=== PATIENT | male | born 1945 | race Caucasian/White ===

== ENCOUNTER 2017-10-31 09:34 | Emergency (ER) | payer MEDICARE, BC ==
[2017-10-31 09:48] VITALS: BP 129/78
--- NOTE | 2017-10-31 10:49 | UC ---
Skin Complaint HPI - HPI Summary HPI Summary: Pt is a 72 y/o M w/ c/o an erythematous and indurated right lower leg. Onset of Sx was 3-4 days ago. Pt reports brushing affected area against a branch around time frame of Sx onset. No tick was found on/removed from affected area. He reports some tenderness but denies fever and chills. Pt denies pain on triage. Pt states he treated area with hydrogen peroxide and betadine. Two days ago, he began to apply neosporine and dave wrap. - History of Current Complaint Chief Complaint: UCSkin Time Seen by Provider: 10/31/17 10:21 Stated Complaint: SKIN COMPLAINT Hx Obtained From: Patient Onset/Duration: Lasting Days - 3-4 days ago Current Severity: None - denies pain Pain Intensity: 0 Pain Scale Used: 0-10 Numeric - 0/10 Location: Other - right lower leg Character: Redness Aggravating Factor(s): Nothing Alleviating Factor(s): Nothing Associated Signs & Symptoms: Positive: Tenderness. Negative: Fever, Chills Related History: Possible Reaction to: Environmental Exposure - Pt reports brushing affected area against a branch - Allergy/Home Medications Allergies/Adverse Reactions: Allergies Allergy/AdvReac Type Severity Reaction Status Date / Time oxycodone Allergy Agitation Verified 10/31/17 09:48 Home Medications: Home Medications Amlodipine Besylate [Norvasc 5 mg tab] 2.5 mg PO BID 10/31/17 [History Confirmed 10/31/17] Review of Systems Constitutional: Other - NEGATIVE: fever, chills Musculoskeletal: Other: - POSITIVE: erythematous, indurated, tender area on right lower leg. All Other Systems Reviewed And Are Negative: Yes PMH/Surg Hx/FS Hx/Imm Hx Endocrine History: Other Other Endocrine History: NEGATIVE: diabetes Respiratory History: Other Other Respiratory History: NEGATIVE: COPD Other History Of: Negative For: Anticoagulant Therapy - takes ASA 325MG DAILY - Surgical History Surgical History: Yes Surgery Procedure, Year, and Place: quadruple bypass and stent; inguinal hernia ; right carotid "cleansing" - Family History Known Family History: Positive: Cardiac Disease, Respiratory Disease - ASTHMA - Social History Alcohol Use: Daily Alcohol Amount: wine Substance Use Type: None Smoking Status (MU): Never Smoked Tobacco Have You Smoked in the Last Year: No - Immunization History Most Recent Tetanus Shot: Not sure Hx Tetanus, Diphtheria Vaccination: Yes Vaccination Up to Date: No Physical Exam - Summary Physical Exam Summary: General: well-appearing, no pain distress Skin: warm, color reflects adequate perfusion, dry; right lateral calf, 3 cm erythematous flat area with scab in central part, slightly indurated, no drainable fluid collection, no streaking. Head: normal Eyes: EOMI, BRIAN ENT: normal Neck: supple, nontender Respiratory: CTA, breath sounds present Cardiovascular: RRR Abdomen: soft, nontender Bowel: present Musculoskeletal: normal, strength/ROM intact Neurological: sensory/motor intact, A&O x3 Psychological: affect/mood appropriate Triage Information Reviewed: Yes Vital Signs: Initial Vital Signs Temp 98.2 F 10/31/17 09:43 Pulse 71 10/31/17 09:43 Resp 18 10/31/17 09:43 BP 129/78 10/31/17 09:43 Pulse Ox 99 10/31/17 09:43 Vital Signs Reviewed: Yes Course/Dx - Course Course Of Treatment: F/U PMD; RECHECK SOONER IF WORSE. - Diagnoses Provider Diagnoses: CELLULITIS RIGHT LEG Discharge - Sign-Out/Discharge Documenting (check all that apply): Patient Departure - Discharge Plan Condition: Stable Disposition: HOME Prescriptions: Cephalexin CAP* [Keflex CAP*] 500 mg PO TID #30 cap Mupirocin 1 applic TOPICAL TID #22 gm Patient Education Materials: Cellulitis (ED) Referrals: Nona Agudelo MD [Primary Care Provider] - Additional Instructions: FOLLOW UP WITH YOUR DOCTOR. GET RECHECKED FOR ANY WORSENING OF YOUR CONDITION; FEVER, SPREAD OF INFECTION, YOU FEEL ILL OR QUESTIONS OR CONCERNS. - Billing Disposition and Condition Condition: STABLE Disposition: Home
== END 2017-10-31 10:35 | disposition home or self-care (01) ==
LOC: UCEAST 09:34
DX: L03.115 Cellulitis of right lower limb (principal); Z79.82 Long term (current) use of aspirin; Z95.1 Presence of aortocoronary bypass graft; Z95.5 Presence of coronary angioplasty implant and graft; Z88.5 Allergy status to narcotic agent; Z82.49 Family history of ischemic heart disease and other diseases of the circulatory system; Z82.5 Family history of asthma and other chronic lower respiratory diseases
CPT/HCPCS: 99212; G0463

== ENCOUNTER 2018-02-16 06:04 | Emergency (ER) | payer MEDICARE, BC ==
[2018-02-16 06:38] LABS: ABS Basophils 0 10^3/ul (0-0.2); ABS Eosinophils 0.2 10^3/ul (0-0.6); ABS Lymphocytes 1.2 10^3/ul (1.0-4.8); ABS Monocytes 0.5 10^3/ul (0-0.8); ABS Neutrophils 3.5 10^3/ul (1.5-7.7); ABS Nucleated RBC 0 10^3/ul; Eosinophil % 3.1 % (0-6); Hematocrit 42 % (42-52); Hemoglobin 14.7 g/dl (14.0-18.0); Lymphocyte % 21.4 % (25-47); Mean Corpuscular HGB Conc 35 g/dl (31-36); Mean Corpuscular Hemoglobin 32 pg (27-31); Mean Corpuscular Volume 91 fL (80-94); Mean Platelet Volume 7.2 um3 (7.4-10.4); Nucleated Red Blood Cells % 0.2; Platelet Count 204 10^3/ul (150-450); Red Blood Count 4.55 10^6/ul (4.00-5.40); Red Cell Distribution Width 13 % (10.5-15); White Blood Count 5.4 10^3/ul (3.5-10.8)
[2018-02-16 06:57] LABS: EGFR Non-African American 96.4 (>60)
--- NOTE | 2018-02-16 07:02 | ED ---
Complex/Multi-Sys Presentation - HPI Summary HPI Summary: Patient is a 72-year-old male who presents emergency department for vague complaints of chills, nausea, chest breath and increased anxiety. Patient states over the last few days he has been having episodes he wakes up feeling short of breath, anxious and nauseous. He experiences episode just prior to arrival and presented to the ER for evaluation. Patient states he did take a nitroglycerin and Ativan symptoms resolved. However patient denies having any chest pain. 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 Also past medical history of acid reflux, high blood pressure, high cholesterol. Patient denies recent illness, fevers, abdominal pain, vomiting, diarrhea, urinary symptoms. Symptoms are moderate in severity. Patient currently has no complaints. No current modifying factors. - History Of Current Complaint Chief Complaint: EDGeneral Time Seen by Provider: 02/16/18 06:20 Hx Obtained From: Patient - Allergies/Home Medications Allergies/Adverse Reactions: Allergies Allergy/AdvReac Type Severity Reaction Status Date / Time oxycodone Allergy Agitation Verified 02/16/18 06:12 PMH/Surg Hx/FS Hx/Imm Hx Previously Healthy: Yes Endocrine/Hematology History: Reports: Hx Thyroid Disease - NODULES Denies: Hx Anticoagulant Therapy - takes ASA 325MG DAILY, Hx Diabetes Cardiovascular History: Reports: Hx Angina, Hx Coronary Artery Disease - 2007, Hx Hypercholesterolemia, Hx Hypertension - on medications, Hx Myocardial Infarction Denies: Hx Valvular Heart Disease Respiratory History: Denies: Hx Chronic Obstructive Pulmonary Disease (COPD) History: Reports: Hx Kidney Stones - 25 YRS AGO Musculoskeletal History: Reports: Hx Arthritis - BACK,KNEES,ELBOWS Sensory History: Reports: Hx Contacts or Glasses - GLASSES, Other Sensory Impairments - "FLOATERS" Denies: Hx Cataracts, Hx Hearing Aid Opthamlomology History: Reports: Hx Contacts or Glasses - GLASSES, Other Sensory Impairments - "FLOATERS" Denies: Hx Cataracts Psychiatric History: Reports: Hx Anxiety - OCC - Surgical History Surgery Procedure, Year, and Place: quadruple bypass and stent; inguinal hernia ; right carotid "cleansing" Hx Anesthesia Reactions: No Infectious Disease History: No Infectious Disease History: Denies: Hx Clostridium Difficile, Hx Hepatitis, Hx Human Immunodeficiency Virus (HIV), Hx of Known/Suspected MRSA, Hx Shingles, Hx Tuberculosis, Hx Known/ Suspected VRE, Hx Known/Suspected VRSA, History Other Infectious Disease, Traveled Outside the [place] in Last 30 Days - Family History Known Family History: Positive: Cardiac Disease, Respiratory Disease - ASTHMA - Social History Occupation: Retired Lives: With Family Alcohol Use: Occasionally Alcohol Amount: wine Substance Use Type: Reports: None Smoking Status (MU): Never Smoked Tobacco Have You Smoked in the Last Year: No Review of Systems Positive: Chills. Negative: Fever Eyes: Negative ENT: Negative Cardiovascular: Negative Negative: Palpitations, Chest Pain Positive: Shortness Of Breath. Negative: Cough Positive: Nausea. Negative: Abdominal Pain, Vomiting, Diarrhea Genitourinary: Negative Musculoskeletal: Negative Skin: Negative Neurological: Negative All Other Systems Reviewed And Are Negative: Yes Physical Exam Triage Information Reviewed: Yes Vital Signs On Initial Exam: Initial Vitals Temp Pulse Resp BP Pulse Ox 97.6 F 81 12 158/79 97 02/16/18 06:08 02/16/18 06:08 02/16/18 06:08 02/16/18 06:08 02/16/18 06:08 Vital Signs Reviewed: Yes Appearance: Positive: Well-Appearing - Pt. sitting up in bed in NAD. present. Skin: Positive: Warm, Dry Head/Face: Positive: Normal Head/Face Inspection Eyes: Positive: Normal, EOMI, Conjunctiva Clear Neck: Positive: Supple Respiratory/Lung Sounds: Positive: Clear to Auscultation, Breath Sounds Present. Negative: Rales, Rhonchi, Wheezes Cardiovascular: Positive: Normal, RRR Abdomen Description: Positive: Nontender, Soft Musculoskeletal: Negative: Edema Left, Edema Right Neurological: Positive: Normal, CN Intact II-III Psychiatric: Positive: Affect/Mood Appropriate Diagnostics - Vital Signs Vital Signs Temp Pulse Resp BP Pulse Ox 02/16/18 06:08 97.6 F 81 12 158/79 97 - Laboratory Lab Results: Lab Results 02/16/18 02/16/18 Range/Units 06:27 06:27 WBC 5.4 (3.5-10.8) 10^3/ul RBC 4.55 (4.00-5.40) 10^6/ul Hgb 14.7 (14.0-18.0) g/dl Hct 42 (42-52) % MCV 91 (80-94) fL MCH 32 H (27-31) pg MCHC 35 (31-36) g/dl RDW 13 (10.5-15) % Plt Count 204 (150-450) 10^3/ul MPV 7.2 L (7.4-10.4) um3 Neut % (Auto) 65.3 (38-83) % Lymph % (Auto) 21.4 L (25-47) % Howard % (Auto) 9.6 H (0-7) % Eos % (Auto) 3.1 (0-6) % Baso % (Auto) 0.6 (0-2) % Absolute Neuts (auto) 3.5 (1.5-7.7) 10^3/ul Absolute Lymphs (auto) 1.2 (1.0-4.8) 10^3/ul Absolute Monos (auto) 0.5 (0-0.8) 10^3/ul Absolute Eos (auto) 0.2 (0-0.6) 10^3/ul Absolute Basos (auto) 0 (0-0.2) 10^3/ul Absolute Nucleated RBC 0 10^3/ul Nucleated RBC % 0.2 APTT 30.9 (26.0-36.3) seconds Result Diagrams: 02/16/18 06:27 02/16/18 06:27 Lab Statement: Any lab studies that have been ordered have been reviewed, and results considered in the medical decision making process. Complex Multi-Symp Course/Dx Course Of Treatment: Pt. presenting for vague complaints of chills, nausea, intermittent SOB, and increased anxiety. Pt. denies any recent or current CP. He currently denies any complaints. He is afebrile with stable VS. O2 saturation is 97% on RA which is normal. ECG done at 0637 shows a sinus rhythm of 70bpm, noraml axis, appropriate intervals, no ST elevation or depression. Pending labs and CXR. Labs are unremarkable other than mildly elevated bilirubin which is in the past. Troponin 2 are negative. Negative d-dimer and BNP. CXR negative per radiology. Reexamination patient is resting comfortably. Results were discussed. He is relieved testing is normal. Do not suspect a symptoms are cardiac in nature. Advised him to call his family doctor today for close follow-up appointment. He will return to the ER if symptoms change or worsen. Pt. and understand and agree with plan. - Diagnoses Differential Diagnoses/HQI/PQRI: Cardiac Ischemia Provider Diagnoses: Anxiety Discharge - Sign-Out/Discharge Documenting (check all that apply): Patient Departure - Discharge Plan Condition: Good Disposition: HOME Patient Education Materials: Anxiety (ED) Referrals: Nona Agudelo MD [Primary Care Provider] - Additional Instructions: Call your PCP today to schedule a close follow up appointment Continue home medications as directed Return to ER if symptoms change or worsen - Billing Disposition and Condition Condition: GOOD Disposition: Home
--- NOTE | 2018-02-16 08:13 | RAD ---
INDICATION: Chest pain COMPARISON: Chest x-ray dated May 09, 2011 TECHNIQUE: Single AP portable view of the chest was obtained. FINDINGS: Image quality is compromised due to the relative inferiority of a portable chest x-ray. Stable postsurgical changes include sternotomy wires and surgical clips overlying the mediastinum The heart and mediastinum exhibit normal size and contour. The lungs are grossly clear. There is no evidence of a large pleural effusion. Visualized bones are normal for the patient's age. IMPRESSION: No radiographic evidence for acute cardiopulmonary abnormality on this portable chest x-ray. [id number]
[2018-02-16 10:11] VITALS: BP 0/0
== END 2018-02-16 10:10 | disposition home or self-care (01) ==
LOC: ED 06:04
DX: F41.9 Anxiety disorder, unspecified (principal); E04.1 Nontoxic single thyroid nodule; Z79.82 Long term (current) use of aspirin; I25.10 Atherosclerotic heart disease of native coronary artery without angina pectoris; E78.00 Pure hypercholesterolemia, unspecified; I10 Essential (primary) hypertension; I25.2 Old myocardial infarction; Z87.442 Personal history of urinary calculi
CPT/HCPCS: 36415; 71045; 80053; 83735; 83880; 84484; 85025; 85379; 85730; 93005; 99282

== ENCOUNTER 2023-05-04 22:47 | Observation (INO) ==
[2023-05-04] MEDS ORDERED: Ondansetron 4 mg VIAL 2 MG/ML 2 ml VIAL IV ONE (23:14)
[2023-05-04 23:56] LABS: ABS Basophils 0.1 10^3/uL (0.0-0.1); ABS Eosinophils 0.2 10^3/uL (0.0-0.5); ABS Lymphocytes 1.5 10^3/uL (1.0-4.8); ABS Monocytes 0.8 10^3/uL (0.0-1.1); ABS Neutrophils 4.6 10^3/uL (1.5-7.6); Eosinophil % 2.3 %; Hematocrit 41.2 % (38-53); Hemoglobin 14.5 g/dL (13.2-16.3); Lymphocyte % 21.7 %; Mean Corpuscular Hemoglobin 31.9 pg (27-33); Mean Corpuscular Hgb Conc 35.3 g/dL (31-36); Mean Corpuscular Volume 90.6 fL (80-97); Mean Platelet Volume 7.5 fL (7.5-11.2); Platelet Count 215 10^3/uL (150-450); Red Blood Count 4.55 10^6/uL (4.06-5.63); Red Cell Distribution Width 12.7 % (12-17); White Blood Count 7.1 10^3/uL (3.6-10.2)
[2023-05-05 00:13] LABS: INR 0.95 (0.83-1.13)
[2023-05-05 00:15] LABS: Albumin 4.2 g/dL (3.2-5.2); Albumin/Globulin Ratio 1.6 (1-3); C Reactive Protein 2.31 mg/L (<8.01); Calcium 9.6 mg/dL (8.6-10.3); Creatinine, Serum 0.89 mg/dL (0.67-1.17); Globulin 2.7 g/dL (2-4); Potassium 4.1 mmol/L (3.5-5.0); Total Bilirubin 0.8 mg/dL (0.2-1.0); Total Protein 6.9 g/dL (6.4-8.9); eGFR CKD-EPI 88.3 (>60)
[2023-05-05] MEDS ORDERED: Iohexol 300 (CONTRAST) 10 ML SDV IV ONE (00:24)
[2023-05-05] MEDS ORDERED: Ondansetron 4 mg VIAL 2 MG/ML 2 ml VIAL IV PRN (02:05)
[2023-05-05] MEDS ORDERED: HYDROmorphone 0.5 MG/0.5 ML SYRINGE IV SLOW PU PRN (02:11)
[2023-05-05] MEDS ORDERED: Lactated Ringers 1000 ml BAG 1,000 ML IV SCH (03:00)
[2023-05-05 11:34] VITALS: BP 146/76
== END 2023-05-05 11:32 | disposition home or self-care (01) ==
LOC: EDHOLD 22:47 → ED 22:47 → EDHOLD 05-05 11:31
PROVIDERS: ADMIT Surgery; ATTEND Surgery